=== PATIENT | female | born 1975 | race Caucasian/White ===

== ENCOUNTER → 2016-07-21 | Outpatient (CLI) | payer OTHER | LOC: HEART CORB 10:21 | DX: R01.1 Cardiac murmur, unspecified (principal); I10 Essential (primary) hypertension; R00.2 Palpitations | CPT/HCPCS: 93306 ==

== ENCOUNTER 2020-06-09 13:11 | Emergency (ER) | payer OTHER | END 2020-06-09 17:25 | disposition home or self-care (01) | LOC: ER1 13:11 | DX: S09.90XA Unspecified injury of head, initial encounter (principal); S16.1XXA Strain of muscle, fascia and tendon at neck level, initial encounter; S39.012A Strain of muscle, fascia and tendon of lower back, initial encounter; S29.012A Strain of muscle and tendon of back wall of thorax, initial encounter; S93.401A Sprain of unspecified ligament of right ankle, initial encounter; S20.211A Contusion of right front wall of thorax, initial encounter; S50.12XA Contusion of left forearm, initial encounter; S40.012A Contusion of left shoulder, initial encounter; S40.011A Contusion of right shoulder, initial encounter; S80.01XA Contusion of right knee, initial encounter; S70.01XA Contusion of right hip, initial encounter; E11.9 Type 2 diabetes mellitus without complications; E03.9 Hypothyroidism, unspecified; Z88.0 Allergy status to penicillin; F17.210 Nicotine dependence, cigarettes, uncomplicated; Z85.3 Personal history of malignant neoplasm of breast; Z88.8 Allergy status to other drugs, medicaments and biological substances; W01.0XXA Fall on same level from slipping, tripping and stumbling without subsequent striking against object, initial encounter | CPT/HCPCS: 70450; 71111; 72070; 72100; 72125; 73030; 73090; 73502; 73562; 73610; 73630; 99284 ==

== ENCOUNTER 2021-01-20 15:52 | Emergency (ER) | payer OTHER ==
[2021-01-20 17:12] LABS: HEMOGLOBIN 15.4 gm/dl (12.3-15.3); RED BLOOD COUNT 5.08 M/UL (4.00-5.10); WHITE BLOOD COUNT 8.2 K/UL (4.5-11.0)
[2021-01-20 17:37] LABS: BUN/CREATININE RATIO 14 (0-10)
== END 2021-01-20 21:05 | disposition home or self-care (01) ==
LOC: ER1 15:52
PROVIDERS: Family Medicine
DX: F15.10 Other stimulant abuse, uncomplicated (principal); F11.10 Opioid abuse, uncomplicated; Z20.822 Contact with and (suspected) exposure to COVID-19; Z88.0 Allergy status to penicillin
CPT/HCPCS: 70450; 71045; 80053; 80307; 81001; 82550; 82553; 83605; 83874; 84484; 85025; 93005; 99285; G0480; U0002

== ENCOUNTER 2021-05-01 18:56 | Emergency (ER) | payer OTHER ==
[2021-05-02] MEDS ORDERED: IBUPROFEN800 MG PO (01:49)
== END 2021-05-02 01:35 | disposition home or self-care (01) ==
LOC: ER1 18:56
DX: M79.605 Pain in left leg (principal); M54.6 Pain in thoracic spine; M25.512 Pain in left shoulder; M79.632 Pain in left forearm; M79.652 Pain in left thigh; M79.642 Pain in left hand; F17.210 Nicotine dependence, cigarettes, uncomplicated; Z88.0 Allergy status to penicillin; Z88.8 Allergy status to other drugs, medicaments and biological substances; I10 Essential (primary) hypertension; W01.10XA Fall on same level from slipping, tripping and stumbling with subsequent striking against unspecified object, initial encounter; Y92.009 Unspecified place in unspecified non-institutional (private) residence as the place of occurrence of the external cause
CPT/HCPCS: 70450; 71045; 72125; 72128; 72131; 73030; 73060; 73110; 73502; 73552; 73564; 73590; 73610; 99284

== ENCOUNTER 2021-11-09 01:59 | Emergency (ER) | payer OTHER ==
[~2021-11-09 01:59] MED LIST: IBUPROFEN800 MG PO
== END 2021-11-09 03:55 | disposition left against medical advice (07) ==
LOC: ER1 01:59
DX: Z53.21 Procedure and treatment not carried out due to patient leaving prior to being seen by health care provider (principal)